=== PATIENT | male | born 1940 | race Caucasian/White ===

== ENCOUNTER 2017-08-07 13:24 | Inpatient (IN) | payer MEDICARE, OTHER ==
[~2017-08-07] VITALS: Ht 170.2 cm; Wt 74.4 kg
[~2017-08-07 13:24] MED LIST: ALLO300T PO; LISI1TAB7 PO; MELO15TA24 PO; METO25TA91 PO; OXYC10TA6 PO; SULF-16 PO; TAMS0.4C2 PO; ZOLP10TA5 PO
[2017-08-07] MEDS ORDERED: AMPICILLIN/SULBACTAM 3 GM in SODIUM CHLORIDE 0.9% 100 ML IVPB ONE (15:00)
[2017-08-07] MEDS ORDERED: SODIUM CHLORIDE FLUSH 10ML SYR IVF ONE (15:00)
[2017-08-07] MEDS ORDERED: DIPH,PERTUSS(ACELL),TET VAC/PF 0.5 ML IM-VACC ONE ×2 (15:00→15:33)
[2017-08-07 15:21] LABS: MEAN CORPUSCULAR HEMOGLOBIN 35.7 pg (27.5-34.5); MEAN CORPUSCULAR HGB CONC 33.8 g/dL (33.2-36.2); MEAN CORPUSCULAR VOLUME 105.7 fL (81-97); MEAN PLATELET VOLUME 9.1 fL (7.4-10.4); PLATELET COUNT 220 x10^3/uL (130-400); RED BLOOD COUNT 3.48 x10^6/uL (4.38-5.82)
[2017-08-07 15:28] LABS: ALANINE AMINOTRANSFERASE 17 U/L (12-78); ALBUMIN 3.4 g/dL (3.4-5.0); ANION GAP 8 mmol/L (5-15); CALCIUM 8.5 mg/dL (8.5-10.1); CHLORIDE 104 mmol/L (98-107)
[2017-08-07 15:31] LABS: ALKALINE PHOSPHATASE 100 U/L (45-117); BILIRUBIN,TOTAL 3.1 mg/dL (0.2-1.0); CREATININE 0.99 mg/dL (0.7-1.3); TOTAL PROTEIN 6.7 g/dL (6.4-8.2)
[2017-08-07 15:40] LABS: BASOPHILS # (AUTO) 0.02 x10^3/uL (0-0.1); BASOPHILS % (AUTO) 0 % (0-1); EOSINOPHILS # (AUTO) 0.23 x10^3/uL (0-0.4); EOSINOPHILS % (AUTO) 2 % (1-7); LYMPHOCYTES # (AUTO) 1.12 x10^3/uL (1-3.4); LYMPHOCYTES % (AUTO) 10 % (22-44); MONOCYTES # (AUTO) 1.51 x10^3/uL (0.2-0.8); MONOCYTES % (AUTO) 13 % (2-9); NEUTROPHILS # (AUTO) 8.65 x10^3/uL (1.8-6.8); NEUTROPHILS % (AUTO) 75 % (42-75)
[2017-08-07 15:41] LABS: MD SCAN
[2017-08-07] MEDS ORDERED: APIX5TAB PO (16:24)
[2017-08-07] MEDS ORDERED: APIXABAN 5 MG TABLET PO ONE (17:00)
[2017-08-07] MEDS ORDERED: APIXABAN 5 MG TABLET ONE (17:28)
[2017-08-07] MEDS ORDERED: HYDROcodone/APAP 5/325 TABLET ONE (18:14)
[2017-08-07] MEDS ORDERED: HYDROcodone/APAP 5/325 TABLET PO ONE (18:30)
[2017-08-07] MEDS ORDERED: SODIUM CHLORIDE FLUSH 10ML SYR IVF PRN (18:30)
[2017-08-07 19:37] VITALS: BP 128/80
[2017-08-07] MEDS ORDERED: OXYcodone IR 5MG TABLET PO PRN (20:00)
[2017-08-07] MEDS ORDERED: POLYETHYLENE GLYCOL 17 GM PACKET PO PRN (20:00)
[2017-08-07] MEDS ORDERED: DOCUSATE 100 MG CAPSULE PO PRN (20:00)
[2017-08-07] MEDS ORDERED: SULBACTAM IV ONE (21:00)
[2017-08-07] MEDS ORDERED: AMPICILLIN IV ONE (21:00)
[2017-08-07] MEDS ORDERED: SODIUM CHLORIDE 0.9% IV ONE (21:00)
[2017-08-07] MEDS: OXYcodone IR 5MG TABLET PO PRN (21:11)
[2017-08-07] MEDS: AMPICILLIN/SULBACTAM 1,500 MG in SODIUM CHLORIDE 0.9% 50 ML IV SCH (21:11)
[2017-08-07] MEDS: SODIUM CHLORIDE FLUSH 10ML SYR IVF SCH (21:11)
[2017-08-07 22:13] LABS: MICROSCOPIC INDICATED
[2017-08-07 22:17] LABS: CULTURE INDICATED? NO
[2017-08-08] MEDS: OXYcodone IR 5MG TABLET PO PRN ×5 (01:24→21:42)
[2017-08-08] MEDS: ZOLPIDEM 5MG TABLET PO PRN (01:24)
[2017-08-08 02:13] VITALS: BP 114/67
[2017-08-08] MEDS: AMPICILLIN/SULBACTAM 1,500 MG in SODIUM CHLORIDE 0.9% 50 ML IV SCH ×4 (05:31→21:43)
[2017-08-08] MEDS ORDERED: APIXABAN 5 MG TABLET PO SCH (07:00)
[2017-08-08 07:12] VITALS: BP 111/64
[2017-08-08] MEDS: LISINOPRIL 20 MG TABLET PO SCH (09:00)
[2017-08-08] MEDS: POTASSIUM CHLORIDE 20 MEQ TAB.ER.PRT PO SCH (09:08)
[2017-08-08] MEDS: APIXABAN 5 MG TABLET PO SCH ×2 (09:09→21:43)
[2017-08-08] MEDS: METOPROLOL SUCCINATE 25 MG TAB.ER.24H PO SCH (09:09)
[2017-08-08] MEDS: SODIUM CHLORIDE FLUSH 10ML SYR IVF SCH ×2 (09:09→21:42)
[2017-08-08] MEDS: FUROSEMIDE 20 MG TABLET PO SCH ×2 (09:09→16:18)
[2017-08-08] MEDS: ALLOPURINOL 300 MG TABLET PO SCH (09:09)
[2017-08-08 14:00] VITALS: BP 138/74
[2017-08-08 19:01] VITALS: BP 115/64
[2017-08-09 01:22] VITALS: BP 116/72
[2017-08-09] MEDS: ZOLPIDEM 5MG TABLET PO PRN (01:40)
[2017-08-09] MEDS: OXYcodone IR 5MG TABLET PO PRN ×4 (01:40→14:31)
[2017-08-09] MEDS: AMPICILLIN/SULBACTAM 1,500 MG in SODIUM CHLORIDE 0.9% 50 ML IV SCH ×2 (03:54→10:15)
[2017-08-09 07:47] VITALS: BP 112/71
[2017-08-09] MEDS: FUROSEMIDE 20 MG TABLET PO SCH (10:11)
[2017-08-09] MEDS: ALLOPURINOL 300 MG TABLET PO SCH (10:11)
[2017-08-09] MEDS: APIXABAN 5 MG TABLET PO SCH (10:11)
[2017-08-09] MEDS: POTASSIUM CHLORIDE 20 MEQ TAB.ER.PRT PO SCH (10:11)
[2017-08-09] MEDS: METOPROLOL SUCCINATE 25 MG TAB.ER.24H PO SCH (10:11)
[2017-08-09] MEDS: SODIUM CHLORIDE FLUSH 10ML SYR IVF SCH (10:12)
[2017-08-09] MEDS: LISINOPRIL 20 MG TABLET PO SCH (10:12)
[2017-08-09 13:35] VITALS: BP 94/56
[2017-08-09] MEDS ORDERED: AMOX1TAB64 PO (14:55)
[2017-08-14] MEDS ORDERED: APIXABAN 5 MG TABLET PO SCH (21:00)
== END 2017-08-09 13:25 | disposition home or self-care (01) | DRG 560 ==
LOC: ED 17:08 → EDIP 18:02 → 3NE 19:34
PROVIDERS: ADMIT Internal Medicine; ATTEND Internal Medicine
PROC: 0S9D3ZX Drainage of Left Knee Joint, Percutaneous Approach, Diagnostic (ICD-10-PCS; principal; 2017-08-08)
DX: T84.54XA Infection and inflammatory reaction due to internal left knee prosthesis, initial encounter (principal); M25.062 Hemarthrosis, left knee; I82.512 Chronic embolism and thrombosis of left femoral vein; L03.116 Cellulitis of left lower limb; I82.532 Chronic embolism and thrombosis of left popliteal vein; D64.9 Anemia, unspecified; I10 Essential (primary) hypertension; Z95.0 Presence of cardiac pacemaker; M10.9 Gout, unspecified; R29.6 Repeated falls; M25.552 Pain in left hip; M25.551 Pain in right hip; G89.4 Chronic pain syndrome; I25.10 Atherosclerotic heart disease of native coronary artery without angina pectoris; Z96.653 Presence of artificial knee joint, bilateral; M17.0 Bilateral primary osteoarthritis of knee; Y83.1 Surgical operation with implant of artificial internal device as the cause of abnormal reaction of the patient, or of later complication, without mention of misadventure at the time of the procedure; Z79.01 Long term (current) use of anticoagulants; Z79.891 Long term (current) use of opiate analgesic; Z90.49 Acquired absence of other specified parts of digestive tract; Z90.89 Acquired absence of other organs; Z23 Encounter for immunization
CPT/HCPCS: 36415; 80053; 81001; 82607; 83605; 85025; 87040; 89051; 90471; 90715; 93922; 96365; J0295

== ENCOUNTER 2017-08-20 11:38 | Inpatient (IN) | payer OTHER ==
[~2017-08-20] VITALS: Ht 170.2 cm; Wt 88.2 kg
[~2017-08-20 11:38] MED LIST changes: +AMOX1TAB64 PO; +APIX5TAB PO
[2017-08-20] MEDS ORDERED: SODIUM CHLORIDE 0.9% 1,000ML IVBOLUS ONE ×2 (12:00)
[2017-08-20] MEDS ORDERED: SODIUM CHLORIDE FLUSH 10ML SYR IVF ONE (12:00)
[2017-08-20 12:28] LABS: MEAN CORPUSCULAR HEMOGLOBIN 34.6 pg (27.5-34.5); MEAN CORPUSCULAR VOLUME 104.9 fL (81-97); MEAN PLATELET VOLUME 8.6 fL (7.4-10.4); PLATELET COUNT 336 x10^3/uL (130-400); RED BLOOD COUNT 2.45 x10^6/uL (4.38-5.82); RED CELL DISTRIBUTION WIDTH 13.9 % (9.4-14.8)
[2017-08-20] MEDS ORDERED: PIPERACILLIN/TAZO/PMX 3.375GM 50 ML ONE (12:40)
[2017-08-20 12:49] LABS: MD YES
[2017-08-20 12:50] LABS: BANDS%(MANUAL) 11 % (0-7); LYMPH#(MANUAL) 1.67 x10^3/uL (1-3.4); LYMPHS% (MANUAL) 8 % (22-44); MONOS#(MANUAL) 0.63 x10^3/uL (0.3-2.7); MONOS% (MANUAL) 3 % (2-9); SEGS% (MANUAL) 78 % (42-75)
[2017-08-20 12:51] LABS: <PLATELET ESTIMATE> ADEQUATE; <PLT MORPHOLOGY> NORMAL PLT MORPH; <RBC MORPHOLOGY> NORMAL; INTERNATIONAL NORMALIZED RATIO 1.15 (0.93-1.1); PROTHROMBIN TIME 11.9 Seconds (9.6-11.5)
[2017-08-20] MEDS ORDERED: MORPHINE SULFATE 4 MG/ML, 1ML ONE (12:54)
[2017-08-20] MEDS ORDERED: VANCOMYCIN 1,500 MG in SODIUM CHLORIDE 0.9% 250 ML IV ONE (13:00)
[2017-08-20] MEDS ORDERED: PIPERACILLIN/TAZO/PMX 3.375GM 50 ML IV ONE (13:00)
[2017-08-20] MEDS ORDERED: VANCOMYCIN PER PHARMACY MC PRN ×2 (13:00→15:30)
[2017-08-20] MEDS ORDERED: MORPHINE SULFATE 4 MG/ML, 1ML IVPush ONE (13:00)
[2017-08-20] MEDS ORDERED: NOREPINEPHRINE 4 MG in SODIUM CHLORIDE 0.9% 246 ML IV PRN (13:00)
[2017-08-20 13:05] LABS: ALANINE AMINOTRANSFERASE 10 U/L (12-78); ALBUMIN 2.3 g/dL (3.4-5.0); ANION GAP 19 mmol/L (5-15); CALCIUM 7.9 mg/dL (8.5-10.1); CHLORIDE 105 mmol/L (98-107)
[2017-08-20 13:07] LABS: ALKALINE PHOSPHATASE 71 U/L (45-117); BILIRUBIN,TOTAL 0.9 mg/dL (0.2-1.0)
[2017-08-20 13:09] LABS: TROPONIN I < 0.015 ng/mL (0.000-0.045)
[2017-08-20] MEDS ORDERED: NS + 20MEQ KCL 1,000 ML IV SCH (13:55)
[2017-08-20] MEDS ORDERED: ONDANSETRON ODT 4 MG PO PRN (14:00)
[2017-08-20] MEDS ORDERED: PHARMACOKINETIC MONITORING MC PRN (16:00)
[2017-08-20] MEDS: MORPHINE SULFATE 4 MG/ML, 1ML IVPush PRN ×3 (16:34→23:43)
[2017-08-20] MEDS: NOREPINEPHRINE 4 MG in SODIUM CHLORIDE 0.9% 246 ML IV PRN ×2 (18:11→21:28)
[2017-08-20 18:28] LABS: ANION GAP 10 mmol/L (5-15); CALCIUM 7.8 mg/dL (8.5-10.1); CHLORIDE 108 mmol/L (98-107); CREATININE 1.26 mg/dL (0.7-1.3)
[2017-08-20 19:21] LABS: ANION GAP 9 mmol/L (5-15); CALCIUM 7.7 mg/dL (8.5-10.1); CHLORIDE 110 mmol/L (98-107); CREATININE 1.24 mg/dL (0.7-1.3)
[2017-08-20] MEDS: HEPARIN 5,000 UNITS/ML, 1ML SQ SCH (20:28)
[2017-08-20 21:00] LABS: MICROSCOPIC INDICATED
[2017-08-20] MEDS ORDERED: VANCOMYCIN 1,100 MG in SODIUM CHLORIDE 0.9% 250 ML IVPB SCH (21:00)
[2017-08-20] MEDS: PIPERACILLIN/TAZO/PMX 4.5GM 100 ML IV SCH (21:09)
[2017-08-20 21:16] LABS: CULTURE INDICATED? NO
[2017-08-20] MEDS: NS + 20MEQ KCL 1,000 ML IV SCH (21:54)
[2017-08-20 22:39] VITALS: BP 98/48
[2017-08-21] VITALS (8 sets, daily range): BP systolic 96–117; BP diastolic 43–61
[2017-08-21] MEDS: NOREPINEPHRINE 4 MG in SODIUM CHLORIDE 0.9% 246 ML IV PRN (02:03)
[2017-08-21] MEDS: MORPHINE SULFATE 4 MG/ML, 1ML IVPush PRN ×5 (03:13→22:37)
[2017-08-21] MEDS: HEPARIN 5,000 UNITS/ML, 1ML SQ SCH ×3 (03:13→20:42)
[2017-08-21] MEDS: PIPERACILLIN/TAZO/PMX 4.5GM 100 ML IV SCH ×3 (04:59→20:42)
[2017-08-21] MEDS: NS + 20MEQ KCL 1,000 ML IV SCH (05:09)
[2017-08-21 06:30] LABS: MEAN CORPUSCULAR HGB CONC 33.2 g/dL (33.2-36.2); MEAN CORPUSCULAR VOLUME 105.5 fL (81-97); MEAN PLATELET VOLUME 8.6 fL (7.4-10.4); PLATELET COUNT 289 x10^3/uL (130-400); RED CELL DISTRIBUTION WIDTH 14.1 % (9.4-14.8)
[2017-08-21 06:36] LABS: ALANINE AMINOTRANSFERASE 10 U/L (12-78); ALBUMIN 2.2 g/dL (3.4-5.0); ANION GAP 9 mmol/L (5-15); CHLORIDE 111 mmol/L (98-107); CREATININE 0.93 mg/dL (0.7-1.3)
[2017-08-21 06:47] LABS: ALKALINE PHOSPHATASE 61 U/L (45-117); BILIRUBIN,TOTAL 0.8 mg/dL (0.2-1.0); THYROID STIMULATING HORMONE 0.846 mIU/L (0.358-3.740); TOTAL PROTEIN 4.7 g/dL (6.4-8.2)
[2017-08-21 07:11] LABS: BASOPHILS # (AUTO) 0.04 x10^3/uL (0-0.1); BASOPHILS % (AUTO) 0 % (0-1); EOSINOPHILS # (AUTO) 0.01 x10^3/uL (0-0.4); EOSINOPHILS % (AUTO) 0 % (1-7); LYMPHOCYTES # (AUTO) 1.24 x10^3/uL (1-3.4); LYMPHOCYTES % (AUTO) 14 % (22-44); MD MORPH REVIEW ONLY; MONOCYTES # (AUTO) 0.98 x10^3/uL (0.2-0.8); MONOCYTES % (AUTO) 11 % (2-9); NEUTROPHILS # (AUTO) 6.52 x10^3/uL (1.8-6.8); NEUTROPHILS % (AUTO) 74 % (42-75)
[2017-08-21 07:13] LABS: <PLATELET ESTIMATE> ADEQUATE; <PLT MORPHOLOGY> NORMAL PLT MORPH; POLYCHROMASIA 1+
[2017-08-21] MEDS ORDERED: morphine SULFATE 10 MG/ML, 1ML ONE ×2 (11:05→14:16)
[2017-08-21] MEDS ORDERED: BISACODYL 10 MG SUPP PR PRN (13:30)
[2017-08-21] MEDS ORDERED: DOCUSATE 100 MG CAPSULE PO PRN (13:30)
[2017-08-21] MEDS ORDERED: NS + 20MEQ KCL 1,000 ML IV SCH ×4 (13:55→22:00)
[2017-08-21] MEDS: VANCOMYCIN 1,500 MG in SODIUM CHLORIDE 0.9% 250 ML IV SCH (14:26)
[2017-08-21] MEDS ORDERED: METOPROLOL 1 MG/ML, 5ML ONE (14:42)
[2017-08-21] MEDS ORDERED: METOPROLOL 1 MG/ML, 5ML IVPush ONE (15:00)
[2017-08-21] MEDS ORDERED: FENTANYL PF 250 MCG/5ML ONE (15:06)
[2017-08-21] MEDS ORDERED: METOCLOPRAMIDE 5 MG/ML, 2ML ONE (15:31)
[2017-08-21] MEDS ORDERED: DEXAMETHASONE 4 MG/ML, 1ML ONE (16:02)
[2017-08-21] MEDS ORDERED: PROPOFOL 10 MG/ML, 20ML ONE ×2 (16:02)
[2017-08-21] MEDS ORDERED: NEOSPORIN OINT, 15GM ONE (16:23)
[2017-08-21] MEDS ORDERED: SUCCINYLCHOLINE 20 MG/ML, 10ML ONE (16:46)
[2017-08-21] MEDS ORDERED: OXYcodone 5 MG/5 ML ORAL.SOL UDC PO PRN (17:00)
[2017-08-21] MEDS ORDERED: METOPROLOL 1 MG/ML, 5ML IV PRN (17:00)
[2017-08-21] MEDS ORDERED: MORPHINE SULFATE 4 MG/ML, 1ML IVPush PRN (17:00)
[2017-08-21] MEDS ORDERED: ACETAMINOPHEN 325 MG TABLET PO PRN (17:00)
[2017-08-21] MEDS ORDERED: PROMETHAZINE 12.5 MG SUPP PR PRN (17:00)
[2017-08-21] MEDS ORDERED: METOCLOPRAMIDE 5 MG/ML, 2ML IV PRN (17:00)
[2017-08-21] MEDS ORDERED: LABETALOL 5MG/ML, 20ML IV PRN (17:00)
[2017-08-21] MEDS ORDERED: hydrALAzine 20 MG/ML, 1ML IV PRN (17:00)
[2017-08-21] MEDS ORDERED: ONDANSETRON ODT 8 MG PO PRN (17:00)
[2017-08-21] MEDS ORDERED: FENTANYL PF 100 MCG/2ML ONE ×3 (17:31→18:32)
[2017-08-21] MEDS ORDERED: OXYcodone 5 MG/5 ML ORAL.SOL UDC ONE ×2 (17:46)
[2017-08-21] MEDS ORDERED: HYDROmorphone 1 MG/ML, 1ML ONE ×2 (17:46→18:23)
[2017-08-21] MEDS: HYDROmorphone 1 MG/ML, 1ML IV PRN ×4 (17:51→18:45)
[2017-08-21] MEDS: FENTANYL PF 100 MCG/2ML IV PRN ×3 (18:07→18:37)
[2017-08-22] VITALS (11 sets, daily range): BP systolic 90–115; BP diastolic 44–85
[2017-08-22] MEDS: ZOLPIDEM 5MG TABLET PO PRN ×2 (01:36→22:50)
[2017-08-22] MEDS ORDERED: METOPROLOL 1 MG/ML, 5ML IVPush PRN (02:30)
[2017-08-22] MEDS ORDERED: SODIUM CHLORIDE 0.9% 1,000ML IVBOLUS ONE (02:30)
[2017-08-22] MEDS: MORPHINE SULFATE 4 MG/ML, 1ML IVPush PRN ×7 (02:33→22:36)
[2017-08-22] MEDS: HEPARIN 5,000 UNITS/ML, 1ML SQ SCH ×4 (03:10→20:14)
[2017-08-22] MEDS: PIPERACILLIN/TAZO/PMX 4.5GM 100 ML IV SCH ×3 (04:28→20:14)
[2017-08-22 05:06] LABS: ALBUMIN 1.8 g/dL (3.4-5.0); ANION GAP 7 mmol/L (5-15); CALCIUM 7.3 mg/dL (8.5-10.1); CHLORIDE 113 mmol/L (98-107)
[2017-08-22 05:12] LABS: ALANINE AMINOTRANSFERASE 10 U/L (12-78); ALKALINE PHOSPHATASE 47 U/L (45-117); BILIRUBIN,TOTAL 1.1 mg/dL (0.2-1.0); MEAN CORPUSCULAR HGB CONC 34.3 g/dL (33.2-36.2); MEAN CORPUSCULAR VOLUME 101.9 fL (81-97); MEAN PLATELET VOLUME 8.5 fL (7.4-10.4); PLATELET COUNT 209 x10^3/uL (130-400); RED CELL DISTRIBUTION WIDTH 14.9 % (9.4-14.8); TOTAL PROTEIN 4.2 g/dL (6.4-8.2)
[2017-08-22 05:59] LABS: BASOPHILS # (AUTO) 0.03 x10^3/uL (0-0.1); BASOPHILS % (AUTO) 0 % (0-1); EOSINOPHILS % (AUTO) 0 % (1-7); LYMPHOCYTES # (AUTO) 0.74 x10^3/uL (1-3.4); LYMPHOCYTES % (AUTO) 8 % (22-44); MD SCAN; MONOCYTES # (AUTO) 1.14 x10^3/uL (0.2-0.8); MONOCYTES % (AUTO) 12 % (2-9); NEUTROPHILS # (AUTO) 7.89 x10^3/uL (1.8-6.8); NEUTROPHILS % (AUTO) 81 % (42-75)
[2017-08-22] MEDS ORDERED: morphine SULFATE 10 MG/ML, 1ML ONE ×3 (09:30→15:20)
[2017-08-22] MEDS: METOPROLOL TARTRATE 25 MG TABLET PO SCH ×2 (12:37→19:24)
[2017-08-22] MEDS ORDERED: NS + 20MEQ KCL 1,000 ML IV SCH ×2 (14:30→19:00)
[2017-08-22] MEDS: VANCOMYCIN 1,500 MG in SODIUM CHLORIDE 0.9% 250 ML IV SCH (14:49)
[2017-08-22] MEDS: OXYcodone IR 5MG TABLET PO PRN ×2 (16:14→20:21)
[2017-08-23] MEDS: OXYcodone IR 5MG TABLET PO PRN ×5 (00:16→20:42)
[2017-08-23 01:24] VITALS: BP 105/63
[2017-08-23] MEDS: MORPHINE SULFATE 4 MG/ML, 1ML IVPush PRN ×5 (03:42→21:32)
[2017-08-23 05:15] LABS: BASOPHILS # (AUTO) 0.02 x10^3/uL (0-0.1); BASOPHILS % (AUTO) 0 % (0-1); EOSINOPHILS # (AUTO) 0.17 x10^3/uL (0-0.4); EOSINOPHILS % (AUTO) 2 % (1-7); LYMPHOCYTES # (AUTO) 1.15 x10^3/uL (1-3.4); LYMPHOCYTES % (AUTO) 14 % (22-44); MD NO; MEAN CORPUSCULAR HEMOGLOBIN 33.8 pg (27.5-34.5); MEAN CORPUSCULAR HGB CONC 34.3 g/dL (33.2-36.2); MEAN CORPUSCULAR VOLUME 98.5 fL (81-97); MEAN PLATELET VOLUME 8.1 fL (7.4-10.4); MONOCYTES # (AUTO) 1.08 x10^3/uL (0.2-0.8); MONOCYTES % (AUTO) 13 % (2-9); NEUTROPHILS # (AUTO) 5.69 x10^3/uL (1.8-6.8); NEUTROPHILS % (AUTO) 70 % (42-75); PLATELET COUNT 181 x10^3/uL (130-400); RED BLOOD COUNT 2.38 x10^6/uL (4.38-5.82); RED CELL DISTRIBUTION WIDTH 17.3 % (9.4-14.8)
[2017-08-23] MEDS: PIPERACILLIN/TAZO/PMX 4.5GM 100 ML IV SCH ×3 (05:32→21:32)
[2017-08-23] MEDS: METOPROLOL TARTRATE 25 MG TABLET PO SCH ×2 (05:32→17:31)
[2017-08-23] MEDS: HEPARIN 5,000 UNITS/ML, 1ML SQ SCH ×3 (05:33→20:52)
[2017-08-23 08:10] VITALS: BP 100/61
[2017-08-23] MEDS: VANCOMYCIN 1,500 MG in SODIUM CHLORIDE 0.9% 250 ML IV SCH (14:00)
[2017-08-23 14:36] VITALS: BP 108/62
[2017-08-23 19:40] VITALS: BP 113/70
[2017-08-24] MEDS: ZOLPIDEM 5MG TABLET PO PRN (00:27)
[2017-08-24] MEDS: OXYcodone IR 5MG TABLET PO PRN ×6 (01:01→22:01)
[2017-08-24] MEDS: METOPROLOL TARTRATE 25 MG TABLET PO SCH ×2 (01:01→05:17)
[2017-08-24 01:04] VITALS: BP 105/64
[2017-08-24] MEDS: MORPHINE SULFATE 4 MG/ML, 1ML IVPush PRN ×5 (02:03→19:38)
[2017-08-24] MEDS: PIPERACILLIN/TAZO/PMX 4.5GM 100 ML IV SCH (05:18)
[2017-08-24] MEDS: HEPARIN 5,000 UNITS/ML, 1ML SQ SCH (05:18)
[2017-08-24 05:19] VITALS: BP 126/73
[2017-08-24 05:40] LABS: BASOPHILS # (AUTO) 0.04 x10^3/uL (0-0.1); BASOPHILS % (AUTO) 1 % (0-1); EOSINOPHILS # (AUTO) 0.27 x10^3/uL (0-0.4); EOSINOPHILS % (AUTO) 4 % (1-7); LYMPHOCYTES # (AUTO) 1.35 x10^3/uL (1-3.4); LYMPHOCYTES % (AUTO) 18 % (22-44); MD NO; MEAN CORPUSCULAR HEMOGLOBIN 33.2 pg (27.5-34.5); MEAN CORPUSCULAR HGB CONC 33.2 g/dL (33.2-36.2); MEAN CORPUSCULAR VOLUME 99.8 fL (81-97); MONOCYTES # (AUTO) 0.83 x10^3/uL (0.2-0.8); MONOCYTES % (AUTO) 11 % (2-9); NEUTROPHILS # (AUTO) 5.01 x10^3/uL (1.8-6.8); NEUTROPHILS % (AUTO) 67 % (42-75); PLATELET COUNT 215 x10^3/uL (130-400); RED BLOOD COUNT 2.51 x10^6/uL (4.38-5.82); RED CELL DISTRIBUTION WIDTH 16.7 % (9.4-14.8)
[2017-08-24] MEDS ORDERED: VANCOMYCIN 1,500 MG in SODIUM CHLORIDE 0.9% 250 ML IV SCH (06:00)
[2017-08-24 09:06] VITALS: BP 120/70
[2017-08-24] MEDS: METOPROLOL SUCCINATE 100 MG TAB.ER.24H PO SCH (10:00)
[2017-08-24 13:55] VITALS: BP 129/78
[2017-08-24 18:29] VITALS: BP 120/72
[2017-08-24] MEDS: APIXABAN 5 MG TABLET PO SCH (19:38)
[2017-08-25] MEDS: ZOLPIDEM 5MG TABLET PO PRN (00:15)
[2017-08-25] MEDS: MORPHINE SULFATE 4 MG/ML, 1ML IVPush PRN ×6 (00:15→23:42)
[2017-08-25] MEDS: OXYcodone IR 5MG TABLET PO PRN ×5 (03:02→20:43)
[2017-08-25 03:11] VITALS: BP 132/66
[2017-08-25 05:17] LABS: BASOPHILS # (AUTO) 0.03 x10^3/uL (0-0.1); BASOPHILS % (AUTO) 0 % (0-1); EOSINOPHILS # (AUTO) 0.22 x10^3/uL (0-0.4); EOSINOPHILS % (AUTO) 3 % (1-7); LYMPHOCYTES # (AUTO) 1.29 x10^3/uL (1-3.4); LYMPHOCYTES % (AUTO) 17 % (22-44); MD NO; MEAN CORPUSCULAR HEMOGLOBIN 33.5 pg (27.5-34.5); MEAN CORPUSCULAR HGB CONC 33.7 g/dL (33.2-36.2); MEAN CORPUSCULAR VOLUME 99.5 fL (81-97); MEAN PLATELET VOLUME 7.9 fL (7.4-10.4); MONOCYTES # (AUTO) 0.82 x10^3/uL (0.2-0.8); MONOCYTES % (AUTO) 11 % (2-9); NEUTROPHILS # (AUTO) 5.33 x10^3/uL (1.8-6.8); NEUTROPHILS % (AUTO) 69 % (42-75); PLATELET COUNT 224 x10^3/uL (130-400); RED BLOOD COUNT 2.51 x10^6/uL (4.38-5.82)
[2017-08-25 05:18] LABS: ANION GAP 7 mmol/L (5-15); CALCIUM 7.5 mg/dL (8.5-10.1); CHLORIDE 112 mmol/L (98-107)
[2017-08-25 05:24] VITALS: BP 128/73
[2017-08-25] MEDS: METOPROLOL SUCCINATE 100 MG TAB.ER.24H PO SCH (05:25)
[2017-08-25 06:39] VITALS: BP 113/68
[2017-08-25] MEDS: APIXABAN 5 MG TABLET PO SCH ×2 (09:00→19:29)
[2017-08-25] MEDS ORDERED: POTASSIUM CHLORIDE 20 MEQ TAB.ER.PRT PO ONE (11:30)
[2017-08-25 12:16] VITALS: BP 128/76
[2017-08-25] MEDS: POTASSIUM CHLORIDE 10 MEQ TABLET.ER PO SCH (16:25)
[2017-08-25 20:25] VITALS: BP 134/77
[2017-08-26 00:39] VITALS: BP 138/76
[2017-08-26] MEDS: ZOLPIDEM 5MG TABLET PO PRN (01:15)
[2017-08-26] MEDS: OXYcodone IR 5MG TABLET PO PRN ×4 (01:16→15:20)
[2017-08-26] MEDS: MORPHINE SULFATE 4 MG/ML, 1ML IVPush PRN ×4 (04:38→16:14)
[2017-08-26 06:18] VITALS: BP 132/64
[2017-08-26] MEDS: METOPROLOL SUCCINATE 100 MG TAB.ER.24H PO SCH (06:18)
[2017-08-26 06:56] VITALS: BP 128/72
[2017-08-26] MEDS: POTASSIUM CHLORIDE 10 MEQ TABLET.ER PO SCH ×2 (08:00→17:00)
[2017-08-26] MEDS: APIXABAN 5 MG TABLET PO SCH (08:28)
[2017-08-26 13:35] VITALS: BP 143/76
[2017-08-26] MEDS ORDERED: POTA10TA5 PO (13:51)
[2017-08-26] MEDS ORDERED: OXYC5TAB3 PO (13:51)
[2017-08-26] MEDS ORDERED: METO-95 PO (13:51)
== END 2017-08-26 17:47 | DRG 853 ==
LOC: ED 13:54 → EDIP 13:55 → ED 15:00 → ICU 15:48 → CCU 08-21 04:16 → 4EST 08-22 18:46
PROVIDERS: ADMIT Internal Medicine; ATTEND Internal Medicine
PROC: 02HV33Z Insertion of Infusion Device into Superior Vena Cava, Percutaneous Approach (ICD-10-PCS; 2017-08-20)
PROC: B548ZZA Ultrasonography of Superior Vena Cava, Guidance (ICD-10-PCS; 2017-08-20)
PROC: 30233N1 Transfusion of Nonautologous Red Blood Cells into Peripheral Vein, Percutaneous Approach (ICD-10-PCS; 2017-08-21)
PROC: 0QSC04Z Reposition Left Lower Femur with Internal Fixation Device, Open Approach (ICD-10-PCS; principal; 2017-08-22)
PROC: 0QSB04Z Reposition Right Lower Femur with Internal Fixation Device, Open Approach (ICD-10-PCS; 2017-08-22)
DX: A41.9 Sepsis, unspecified organism (principal); E43 Unspecified severe protein-calorie malnutrition; R65.21 Severe sepsis with septic shock; S72.401A Unspecified fracture of lower end of right femur, initial encounter for closed fracture; N19 Unspecified kidney failure; D62 Acute posthemorrhagic anemia; I47.1 Supraventricular tachycardia; S72.402A Unspecified fracture of lower end of left femur, initial encounter for closed fracture; W10.9XXA Fall (on) (from) unspecified stairs and steps, initial encounter; Y93.01 Activity, walking, marching and hiking; Y92.89 Other specified places as the place of occurrence of the external cause; Y99.8 Other external cause status; Z68.30 Body mass index [BMI] 30.0-30.9, adult; I10 Essential (primary) hypertension; M17.10 Unilateral primary osteoarthritis, unspecified knee; S00.31XA Abrasion of nose, initial encounter; Z79.01 Long term (current) use of anticoagulants; Z79.899 Other long term (current) drug therapy; Z86.718 Personal history of other venous thrombosis and embolism; Z87.891 Personal history of nicotine dependence; Z96.653 Presence of artificial knee joint, bilateral
CPT/HCPCS: 0399T; 36415; 36569; 70450; 71045; 72125; 76001; 80048; 80053; 80202; 81001; 83605; 84145; 84443; 84484; 85014; 85018; 85025; 85610; 86850; 86900; 86923; 87040; 87081; 93005; 93306; 96361; 96365; 96366; 96367; 96375; C1713; J1100; J1170; J1644; J2543; J2704; J3010; J3370; J3480; J0330; J2765; J7030; J7050; P9016